=== PATIENT | female | born 1950 | race Caucasian/White ===

== ENCOUNTER 2018-08-08 10:15 | Emergency (ER) | payer BC, MEDICARE ==
[2018-08-08] MEDS ORDERED: cefTRIAXone 1 GM Vial IM ONE (11:00)
[2018-08-08] MEDS ORDERED: Clindamycin HCl 150 MG Cap PO ONE (11:00)
--- NOTE | 2018-08-08 11:07 | EDM.PDOC ---
ED HPI GENERAL MEDICAL PROBLEM - General Chief Complaint: Skin Complaint Stated Complaint: SWOLLEN LEFT SIDE OF FACE Time Seen by Provider: 08/08/18 10:50 Source of Information: Reports: Patient, Old Records, RN History Limitations: Reports: No Limitations - History of Present Illness INITIAL COMMENTS - FREE TEXT/NARRATIVE: 67 yo female here with redness and increased warmth to the area around her L eye. Sx's began Sunday evening and have progessed. No fever. Called the clinic yesterday and got an appt for today, but the clinic is now closed so came here. No hx of the same. Vision unaffected. Onset: Gradual Onset Date: 08/05/18 Duration: Day(s):, Getting Worse Location: Reports: Face Quality: Reports: Dull Severity: Mild Improves with: Reports: None Worsens with: Reports: Other (time) Context: Reports: Other (See HPI) Associated Symptoms: Reports: Fever/Chills (? low grade), Rash (above and lateral to the L eye.) Treatments WEBSITE ADMIN: Reports: Other (see below) (none) Left Face/Facial Pain Score (Numeric/FACES): 9 - Related Data Allergies Allergy/AdvReac Type Severity Reaction Status Date / Time Penicillins Allergy Mild Insomnia Verified 08/08/18 10:53 Home Meds: Home Meds Clindamycin HCl [Cleocin] 300 mg PO Q8H #20 cap 08/08/18 [Rx] Multivitamin [Multivitamins] 1 each PO DAILY 08/08/18 [History] hydroCHLOROthiazide [Hydrochlorothiazide] 25 mg PO DAILY 08/08/18 [History] ED ROS GENERAL - Review of Systems Review Of Systems: See Below Constitutional: Reports: No Symptoms HEENT: Reports: No Symptoms Respiratory: Reports: No Symptoms Cardiovascular: Reports: No Symptoms GI/Abdominal: Reports: No Symptoms : Reports: No Symptoms Skin: Reports: Erythema (above and lateral to the L eye) Neurological: Reports: No Symptoms ED EXAM, SKIN/RASH Exam: See Below Exam Limited By: No Limitations General Appearance: Alert, WD/WN, No Apparent Distress Eye Exam: Bilateral Eye: EOMI, Normal Inspection, PERRL Ears: Normal External Exam, Normal Canal, Hearing Grossly Normal, Normal TMs Nose: Normal Inspection, No Blood Throat/Mouth: Normal Inspection, Normal Lips, Normal Oropharynx, Normal Voice, No Airway Compromise Head: Atraumatic, Normocephalic Neck: Normal Inspection, Supple, Non-Tender Respiratory/Chest: No Respiratory Distress, Lungs Clear, Normal Breath Sounds, No Accessory Muscle Use Cardiovascular: Regular Rate, Rhythm, No Edema Back Exam: Normal Inspection. No: CVA Tenderness (R), CVA Tenderness (L) Extremities: Normal Inspection, Normal Range of Motion, Non-Tender, No Pedal Edema Neurological: Alert, Oriented, CN II-XII Intact, Normal Cognition, No Motor/ Sensory Deficits Psychiatric: Normal Affect, Normal Mood Skin: Warm, Dry, Intact, No Rash, Erythema (above and lateral to the L eye, slight increase in warmth. ), Increased Warmth. No: Ecchymosis, Wound/Incision Location, Skin: Face Characteristics: Confluent Associated features: Warmth. No: Tenderness, Swelling, Induration Course - Vital Signs Last Recorded V/S: Last Vital Signs Temp 37.4 C 08/08/18 10:49 Pulse 83 08/08/18 10:49 Resp 16 08/08/18 10:49 BP 168/80 H 08/08/18 10:49 Pulse Ox 94 L 08/08/18 10:49 - Orders/Labs/Meds Meds: Medications Discontinued Medications Generic Name Dose Route Start Last Admin Trade Name Freq PRN Reason Stop Dose Admin Ceftriaxone Sodium 1 gm 08/08/18 11:00 Rocephin IM 08/08/18 11:01 ONETIME ONE Clindamycin HCl 300 mg 08/08/18 11:00 Cleocin PO 08/08/18 11:01 ONETIME ONE Departure - Departure Time of Disposition: 11:35 Disposition: Home, Self-Care 01 Condition: Fair Clinical Impression: Cellulitis Qualifiers: Site of cellulitis: face Qualified Code(s): L03.211 - Cellulitis of face - Discharge Information *PRESCRIPTION DRUG MONITORING PROGRAM REVIEWED*: Not Applicable *COPY OF PRESCRIPTION DRUG MONITORING REPORT IN PATIENT YUSUF: Not Applicable Prescriptions: Clindamycin HCl [Cleocin] 300 mg PO Q8H #20 cap Instructions: Cellulitis, Adult, [id number] Referrals: Pat Thomson PA [Primary Care Provider] - Additional Instructions: Take clindamycin every 8 hrs starting at 7 pm today. Apply warm compresses to area. Use acetaminophen as needed for pain relief or fever control. Set up a follow up appt for tomorrow with your doctor.
[2018-08-08] MEDS ORDERED: cefTRIAXone 1 GM, Lidocaine 1% 2.1 ML IM ONE ×2 (11:30)
== END 2018-08-08 12:00 | disposition home or self-care (01) ==
LOC: JP.ED 10:15
DX: L03.211 Cellulitis of face (principal); Z88.0 Allergy status to penicillin
CPT/HCPCS: 96372; 99283; A9270; J0696

== ENCOUNTER 2020-04-15 20:19 | Emergency (ER) | payer MEDICARE, OTHER ==
[2020-04-15] MEDS ORDERED: Acetaminophen 325 MG Tab PO PRN (20:23)
--- NOTE | 2020-04-15 20:41 | EDM.PDOC ---
ED HPI GENERAL MEDICAL PROBLEM - General Chief Complaint: Cardiovascular Problem Stated Complaint: HIGH BP, COVID SYMPTOMS Time Seen by Provider: 04/15/20 20:23 Source of Information: Reports: Patient History Limitations: Reports: No Limitations - History of Present Illness INITIAL COMMENTS - FREE TEXT/NARRATIVE: Harmony is a 69-year-old female presenting to the ED with concerns of elevated blood pressure. She stated that her blood pressure at home was 190 mmHg systolic. She is on hydrochlorothiazide for her blood pressure. She incidentally mentioned that she is also had loss of sense of taste or smell over the last 3 days. She also reports that her and her son have had a cough and some shortness of breath over the last week. She has had fever and chills. The cough has been productive but she is not sure what the sputum looks like. She also has had a mild headache, body aches, decreased appetite, and increased fatigue. Aside from the hydrochlorothiazide, the patient does not take any other medications. Onset: Gradual Duration: Week(s): (1 week) Location: Reports: Head, Chest Quality: Reports: Ache Severity: Moderate Improves with: Reports: None Worsens with: Reports: None Associated Symptoms: Reports: Chest Pain, Cough, Fever/Chills, Headaches, Loss of Appetite, Malaise, Shortness of Breath bodyaches Pain Score (Numeric/FACES): 4 - Related Data Allergies Allergy/AdvReac Type Severity Reaction Status Date / Time Penicillins Allergy Mild Insomnia Verified 04/15/20 20:45 Latex, Natural Rubber Allergy Rash Verified 04/15/20 20:45 strawberry Allergy Rash Verified 04/15/20 20:45 eggs Allergy Rash Uncoded 04/15/20 20:45 Home Meds: Home Meds Multivitamin [Multivitamins] 1 each PO DAILY 08/08/18 [History] clindamycin HCL [Cleocin] 300 mg PO Q8H #20 cap 08/08/18 [Rx] hydroCHLOROthiazide [Hydrochlorothiazide] 25 mg PO DAILY 08/08/18 [History] Past Medical History HEENT History: Reports: Impaired Vision Cardiovascular History: Reports: Hypertension Musculoskeletal History: Reports: Osteoarthritis Hematologic History: Reports: Anemia Dermatologic History: Reports: Other (See Below) Other Dermatologic History: Daries Dx - Infectious Disease History Infectious Disease History: Reports: Mumps Social & Family History - Caffeine Use Caffeine Use: Reports: None ED ROS GENERAL - Review of Systems Review Of Systems: See Below Constitutional: Reports: Fever, Chills, Malaise, Fatigue HEENT: Reports: Other (Diminished sense of taste or smell) Respiratory: Reports: Shortness of Breath, Pleuritic Chest Pain, Cough, Sputum Cardiovascular: Reports: Blood Pressure Problem Endocrine: Reports: Fatigue GI/Abdominal: Reports: No Symptoms : Reports: No Symptoms Musculoskeletal: Reports: Muscle Pain Skin: Reports: No Symptoms Neurological: Reports: Headache Psychiatric: Reports: Anxiety Hematologic/Lymphatic: Reports: No Symptoms Immunologic: Reports: No Symptoms ED EXAM, GENERAL - Physical Exam Exam: See Below Exam Limited By: No Limitations General Appearance: Alert, WD/WN, No Apparent Distress Eye Exam: Bilateral Eye: EOMI, PERRL Throat/Mouth: Normal Inspection, Normal Lips, Normal Teeth, Normal Gums, Normal Oropharynx, Normal Voice, No Airway Compromise Head: Atraumatic, Normocephalic Neck: Normal Inspection, Supple, Non-Tender, Full Range of Motion Respiratory/Chest: No Respiratory Distress, No Accessory Muscle Use, Chest Non- Tender, Rhonchi (Bibasilar) Cardiovascular: Normal Peripheral Pulses, Regular Rate, Rhythm, No Edema, No Gallop, No JVD, No Rub, Systolic Murmur (2/6 systolic ejection murmur heard in the left upper sternal border) Peripheral Pulses: 2+: Radial (L), Radial (R), Posterior Tibial (L), Posterior Tibial (R) GI/Abdominal: Normal Bowel Sounds, Soft, Non-Tender, No Organomegaly, No Distention, No Abnormal Bruit, No Mass Back Exam: Normal Inspection, Full Range of Motion, NT Extremities: Normal Inspection, Normal Range of Motion, Non-Tender, Normal Capillary Refill, No Pedal Edema Neurological: Alert, Oriented, CN II-XII Intact, Normal Cognition, Normal Gait, Normal Reflexes, No Motor/Sensory Deficits Psychiatric: Normal Affect, Normal Mood Skin Exam: Warm, Dry, Intact, Normal Color, No Rash Lymphatic: No Adenopathy Course - Vital Signs Text/Narrative:: The patient was brought back to room 11 and Covid protection measures were instituted. Proper PPE was utilized to evaluate the patient. Last Recorded V/S: Last Vital Signs Temp 38.4 C H 04/15/20 21:29 Pulse 91 10/15/20 21:29 Resp 17 04/15/20 21:29 BP 152/81 H 04/15/20 21:29 Pulse Ox 94 L 04/15/20 21:29 - Orders/Labs/Meds Orders: Active Orders 24 hr Category Date Time Status CORONAVIRUS COVID-19, DRAKE Stat Lab 04/15/20 20:56 Received Acetaminophen [TylenoL] Med 04/15/20 20:23 Active 650 mg PO Q4H PRN Iopamidol [Isovue-370 (76%)] Med 04/15/20 21:30 Active 100 ml IV . DIRECTED Sodium Chloride 0.9% [Normal Saline] 100 ml Med 04/15/20 21:30 Active IV ASDIRECTED Sodium Chloride 0.9% [Saline Flush] Med 04/15/20 21:15 Active 10 ml FLUSH ASDIRECTED PRN Isolation [COMM] Stat Oth 04/15/20 20:23 Ordered Saline Lock Insert [OM.PC] Routine Oth 04/15/20 21:15 Ordered Medication Orders Acetaminophen (Tylenol) 650 mg PO Q4H PRN PRN Reason: Fever Greater Than 101 Last Admin: 04/15/20 21:16 Dose: 650 mg Documented by: IRAM Sodium Chloride (Normal Saline) 100 mls @ 4 mls/sec IV ASDIRECTED ALFREDA Last Admin: 04/15/20 21:58 Dose: 4 mls/sec Documented by: SOLO Iopamidol (Isovue-370 (76%)) 100 ml IV . DIRECTED [facility] Last Admin: 04/15/20 21:58 Dose: 100 ml Documented by: SOLO Sodium Chloride (Saline Flush) 10 ml FLUSH ASDIRECTED PRN PRN Reason: Keep Vein Open Last Admin: 04/15/20 21:58 Dose: 10 ml Documented by: Admin: 04/15/20 21:18 Dose: 10 ml Documented by: IRAM Labs: Laboratory Tests 04/15/20 04/15/20 04/15/20 Range/Units 20:23 20:43 20:43 WBC 7.1 (4.5-11.0) K/uL RBC 5.28 (3.30-5.50) M/uL Hgb 15.4 H (12.0-15.0) g/dL Hct 47.3 (36.0-48.0) % MCV 90 (80-98) fL MCH 29 (27-31) pg MCHC 33 (32-36) % Plt Count 262 (150-400) K/uL Neut % (Auto) 65 (36-66) % Lymph % (Auto) 27 (24-44) % Imperial % (Auto) 8 H (2-6) % Eos % (Auto) 0 L (2-4) % Baso % (Auto) 0 (0-1) % D-Dimer, Quantitative 1060 H (0.0-400.0) ng/mL Sodium (140-148) mmol/L Potassium (3.6-5.2) mmol/L Chloride (100-108) mmol/L Carbon Dioxide (21-32) mmol/L Anion Gap (5.0-14.0) mmol/L BUN (7-18) mg/dL Creatinine (0.6-1.0) mg/dL Est Cr Clr Drug Dosing mL/min Estimated GFR (MDRD) (>60) Glucose (74-106) mg/dL Lactic Acid (0.4-2.0) mmol/L Calcium (8.5-10.1) mg/dL Ferritin 271 (8-388) ng/ml Total Bilirubin (0.2-1.0) mg/dL Direct Bilirubin (0.0-0.2) mg/dL Indirect Bilirubin AST (15-37) U/L ALT (12-78) U/L Alkaline Phosphatase (46-116) U/L Lactate Dehydrogenase (82-234) U/L C-Reactive Protein (0.0-0.3) mg/dL Total Protein (6.4-8.2) g/dL Albumin (3.4-5.0) g/dL Globulin (2.3-3.5) g/dL Albumin/Globulin Ratio (1.2-2.2) Procalcitonin ng/mL 04/15/20 04/15/20 04/15/20 Range/Units 20:43 20:43 20:43 WBC (4.5-11.0) K/uL RBC (3.30-5.50) M/uL Hgb (12.0-15.0) g/dL Hct (36.0-48.0) % MCV (80-98) fL MCH (27-31) pg MCHC (32-36) % Plt Count (150-400) K/uL Neut % (Auto) (36-66) % Lymph % (Auto) (24-44) % Imperial % (Auto) (2-6) % Eos % (Auto) (2-4) % Baso % (Auto) (0-1) % D-Dimer, Quantitative (0.0-400.0) ng/mL Sodium 136 L (140-148) mmol/L Potassium 3.0 L (3.6-5.2) mmol/L Chloride 96 L (100-108) mmol/L Carbon Dioxide 32 (21-32) mmol/L Anion Gap 11.0 (5.0-14.0) mmol/L BUN 16 (7-18) mg/dL Creatinine 1.3 H (0.6-1.0) mg/dL Est Cr Clr Drug Dosing 40.28 mL/min Estimated GFR (MDRD) 41 L (>60) Glucose 134 H (74-106) mg/dL Lactic Acid 1.3 (0.4-2.0) mmol/L Calcium 9.0 (8.5-10.1) mg/dL Ferritin (8-388) ng/ml Total Bilirubin 0.7 (0.2-1.0) mg/dL Direct Bilirubin 0.22 H (0.0-0.2) mg/dL Indirect Bilirubin 0.48 AST 38 H (15-37) U/L ALT 56 (12-78) U/L Alkaline Phosphatase 86 (46-116) U/L Lactate Dehydrogenase 228 (82-234) U/L C-Reactive Protein 0.60 H (0.0-0.3) mg/dL Total Protein 8.2 (6.4-8.2) g/dL Albumin 3.8 (3.4-5.0) g/dL Globulin 4.4 H (2.3-3.5) g/dL Albumin/Globulin Ratio 0.9 L (1.2-2.2) Procalcitonin < 0.05 ng/mL Meds: Medications Generic Name Dose Route Start Last Admin Trade Name Freq PRN Reason Stop Dose Admin Acetaminophen 650 mg 04/15/20 20:23 04/15/20 21:16 Tylenol PO 650 mg Q4H PRN Administration Fever Greater Than 101 Sodium Chloride 100 mls @ 4 mls/sec 04/15/20 21:30 04/15/20 21:58 Normal Saline IV 4 mls/sec ASDIRECTED ALFREDA Administration Iopamidol 100 ml 04/15/20 21:30 04/15/20 21:58 Isovue-370 (76%) IV 100 ml . DIRECTED ALFREDA Administration Sodium Chloride 10 ml 04/15/20 21:15 04/15/20 21:58 Saline Flush FLUSH 10 ml ASDIRECTED PRN Administration Keep Vein Open Discontinued Medications Generic Name Dose Route Start Last Admin Trade Name Freq PRN Reason Stop Dose Admin Amlodipine Besylate 5 mg 04/15/20 20:43 04/15/20 21:16 Norvasc PO 04/15/20 20:44 5 mg ONETIME ONE Administration Sodium Chloride 10 ml 04/15/20 21:21 Saline Flush FLUSH 04/15/20 21:22 ONETIME ONE - Radiology Interpretation Free Text/Narrative:: CT angiogram of the chest shows normal pulmonary vasculature without evidence for pulmonary emboli. There is no evidence for acute consolidation or infiltrates. There is mild atelectasis bibasilar. CT Results Date: 04/15/20 CT Results Time: 20:45 - Re-Assessments/Exams Free Text/Narrative Re-Assessment/Exam: 04/15/20 23:30 patient's blood pressure has improved significantly after starting the amlodipine 5 mg p.o. was unremarkable for acute pulmonary embolism. Given her constellation of symptoms, my physical exam, and her lab results, this is highly suggestive for COVID-19. I instructed the patient to self quarantine for the next 10 days. We will put her on the amlodipine 5 mg daily to keep her blood pressure control. She should follow-up with her primary care provider after the 10 days unless her fever continues. She may take Tylenol ibuprofen to control the fever. She has been instructed to push plenty of fluids over the next 48 hours to help relieve the dye load from the kidneys from her CT angiogram. Indications to return to the ED were discussed with the patient and all questions were answered prior to discharge. Departure - Departure Time of Disposition: 23:20 Disposition: Home, Self-Care 01 Condition: Good Clinical Impression: COVID-19 determined by clinical diagnostic criteria Hypertension Qualifiers: Hypertension type: essential hypertension Qualified Code(s): I10 - Essential (primary) hypertension Instructions: COVID-19 Frequently Asked Questions, COVID-19: How to Protect Yourself and Others - CDC, Hypertension, Adult Referrals: PCP,None [Primary Care Provider] - Forms: ED Department Discharge Care Plan Goals: Please have a family member berry picker your prescription for amlodipine 5 mg daily which will be called to [facility] pharmacy. Please return to the ED if you develop any severe shortness of breath, chest pain, high fever that does not respond to Tylenol or ibuprofen. Sepsis Event Note (ED) - Focused Exam Vital Signs: Vital Signs Temp Temp Pulse Resp BP BP Pulse Ox 04/15/20 21:29 38.4 C H 91 17 152/81 H 94 L 04/15/20 21:16 38.8 C H 172/77 H 04/15/20 20:58 38.8 C H 94 17 172/77 H 93 L 04/15/20 20:57 38.8 C H 94 17 172/77 H 93 L - Problem List & Annotations (1) COVID-19 determined by clinical diagnostic criteria SNOMED Code(s): 148570831, 181766830 Code(s): U07.1 - COVID-19 Status: Acute Priority: High Current Visit: Yes (2) Hypertension SNOMED Code(s): 59964677 Code(s): I10 - ESSENTIAL (PRIMARY) HYPERTENSION Status: Chronic Priority: Medium Current Visit: Yes Qualifiers: Hypertension type: essential hypertension Qualified Code(s): I10 - Essential (primary) hypertension - Problem List Review Problem List Initiated/Reviewed/Updated: Yes - My Orders Last 24 Hours: My Active Orders 04/15/20 20:23 Acetaminophen [TylenoL] 650 mg PO Q4H PRN Isolation [COMM] Stat 04/15/20 20:56 CORONAVIRUS COVID-19, DRAKE Stat 04/15/20 21:15 Sodium Chloride 0.9% [Saline Flush] 10 ml FLUSH ASDIRECTED PRN Saline Lock Insert [OM.PC] Routine 04/15/20 21:30 Iopamidol [Isovue-370 (76%)] 100 ml IV . DIRECTED Sodium Chloride 0.9% [Normal Saline] 100 ml IV ASDIRECTED - Assessment/Plan Last 24 Hours: My Active Orders 04/15/20 20:23 Acetaminophen [TylenoL] 650 mg PO Q4H PRN Isolation [COMM] Stat 04/15/20 20:56 CORONAVIRUS COVID-19, DRAKE Stat 04/15/20 21:15 Sodium Chloride 0.9% [Saline Flush] 10 ml FLUSH ASDIRECTED PRN Saline Lock Insert [OM.PC] Routine 04/15/20 21:30 Iopamidol [Isovue-370 (76%)] 100 ml IV . DIRECTED Sodium Chloride 0.9% [Normal Saline] 100 ml IV ASDIRECTED
[2020-04-15] MEDS ORDERED: amLODIPine 5 MG Tab PO ONE (20:43)
[2020-04-15] MEDS: Sodium Chloride 0.9% 10 ML Syringe FLUSH PRN ×2 (21:18→21:58)
[2020-04-15] MEDS ORDERED: Sodium Chloride 0.9% 10 ML Syringe FLUSH ONE (21:21)
[2020-04-15] MEDS ORDERED: Sodium Chloride 0.9% 100 ML IV SCH (21:30)
[2020-04-15] MEDS ORDERED: Iopamidol 755 Mg/ML 100 ML Bottle IV SCH (21:30)
--- NOTE | 2020-04-15 22:35 | CRLCT ---
INDICATION: COVID-19 symptoms, fever, chest pain, body aches, cough, loss of taste and smell, elevated D-dimer TECHNIQUE: Contrast enhanced axial CT imaging through the chest, optimized for assessment of the pulmonary arterial tree. 100 mL Isovue 370 contrast agent was administered intravenously. Sagittal and coronal reconstructions are provided. COMPARISON: None FINDINGS: There is adequate opacification of the pulmonary arterial tree without evidence of thromboembolism. The main pulmonary artery is nondilated. The heart is mildly enlarged there is no pericardial effusion. The thoracic aorta is normal in caliber. There is mild nonspecific bilateral hilar lymphadenopathy. There is mild bibasilar and dependent lung atelectasis. There is no airspace consolidation, pleural effusion or pneumothorax. A small calcified pulmonary nodule is noted in the peripheral right upper lobe. The thoracic osseous structures are unremarkable. The partially visualized liver demonstrates decreased attenuation, suggesting steatosis. IMPRESSION: 1. Mild basilar and dependent lung atelectasis. No radiographic evidence of pneumonia. No evidence of pulmonary thromboembolism. 2. Mild nonspecific bilateral hilar lymphadenopathy. Please note that all CT scans at this facility use dose modulation, iterative reconstruction, and/or weight-based dosing when appropriate to reduce radiation dose to as low as reasonably achievable. Dictated by Sharita Quiros MD @ Apr 15 2020 10:20PM (Electronically Signed)
== END 2020-04-15 23:48 | disposition home or self-care (01) ==
LOC: JP.ED 20:19
DX: U07.1 COVID-19 (principal); I10 Essential (primary) hypertension; Z88.0 Allergy status to penicillin; Z91.018 Allergy to other foods; Z91.040 Latex allergy status; Z91.012 Allergy to eggs; Z79.899 Other long term (current) drug therapy
CPT/HCPCS: 36415; 71275; 80048; 80076; 82728; 83605; 83615; 84145; 85025; 85379; 86140; 99285; A9270; Q9967; U0002

== ENCOUNTER 2022-12-05 08:39 | Day surgery (SDC) | payer MEDICARE ==
[2022-12-05] MEDS ORDERED: Midazolam 1 MG/ML 2 ML SDV ONE (09:04)
[2022-12-05] MEDS ORDERED: Propofol 200 MG/20 ML SDV ONE ×2 (09:04→10:46)
[2022-12-05] MEDS ORDERED: fentaNYL 50 MCG/ML SDV ONE (09:04)
[2022-12-05] MEDS ORDERED: Lactated Ringers 1,000 ML IV SCH (09:15)
== END 2022-12-05 12:32 | disposition home or self-care (01) ==
LOC: JP.SDS 08:39
PROVIDERS: ATTEND Family Medicine
DX: Z12.11 Encounter for screening for malignant neoplasm of colon (principal); D12.2 Benign neoplasm of ascending colon; K63.5 Polyp of colon; I10 Essential (primary) hypertension; E66.9 Obesity, unspecified; Z88.0 Allergy status to penicillin; Z88.1 Allergy status to other antibiotic agents; Z91.040 Latex allergy status; Z79.899 Other long term (current) drug therapy
CPT/HCPCS: J2250; J2704; J3010; J7120

== ENCOUNTER 2023-08-05 10:21 | Emergency (ER) | payer MEDICARE | END 2023-08-05 11:40 | disposition home or self-care (01) | LOC: JP.ED 10:21 | DX: L03.211 Cellulitis of face (principal); I10 Essential (primary) hypertension; Z88.0 Allergy status to penicillin; Z88.1 Allergy status to other antibiotic agents; Z91.040 Latex allergy status; Z91.018 Allergy to other foods; Z91.012 Allergy to eggs; Z79.899 Other long term (current) drug therapy | CPT/HCPCS: 99283 ==